=== PATIENT | female | born 1980 | race Caucasian/White ===

== ENCOUNTER 2016-11-03 23:41 | Emergency (ER) | payer OTHER ==
[~2016-11-03] VITALS: Ht 162.6 cm; Wt 68.0 kg
[2016-11-03 23:41] VITALS: BP 118/78; PULSE 89; RESP 18; TEMP 98.3; O2SAT 98
--- NOTE | 2016-11-03 23:41 | NUR ---
Patient to [facility] for evaluation. Report given to CORRY VELÁSQUEZ.
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
--- NOTE | 2016-11-03 23:59 | NUR ---
ER at bedside examining patient.
--- NOTE | 2016-11-04 00:20 | NUR ---
Officers unable to provide viable blood collection tube. Blood alcohol test cancelled per natural resource officer# [id number], patient to provide breathalizer test at [facility].
[2016-11-04 00:25] VITALS: BP 115/75; PULSE 85; RESP 18; TEMP 98.3; O2SAT 98
--- NOTE | 2016-11-04 00:25 | NUR ---
Patient given written and verbal discharge instructions and verbalizes understanding. ER MD discussed with patient the results and treatment provided. Patient in stable condition. ID arm band removed. No Rx given. Patient educated on pain management and to follow up with PMD. Pain Scale 0/10 . Opportunity for questions provided and answered. Patient exited ER in law enforcement custody in a calm and cooperative manner. No acute distress noted.
== END 2016-11-04 00:25 ==
LOC: SED 23:41
DX: Z02.89 Encounter for other administrative examinations (principal); V89.2XXA Person injured in unspecified motor-vehicle accident, traffic, initial encounter; W22.10XA Striking against or struck by unspecified automobile airbag, initial encounter; Y93.89 Activity, other specified; Y99.8 Other external cause status; Y92.89 Other specified places as the place of occurrence of the external cause
CPT/HCPCS: 99283